=== PATIENT | male | born 1965 | race Caucasian/White ===

== ENCOUNTER 2018-03-03 12:06 | Emergency (ER) | payer BC ==
[~2018-03-03] VITALS: Ht 180.3 cm; Wt 93.4 kg
[2018-03-03 12:46] LABS: HEMATOCRIT 45.8 % (38.0-50.0); HEMOGLOBIN 15.6 G/DL (12.5-16.6); MCH 31.3 PG (29.0-34.0); MCHC 34.1 G/DL (30.0-36.0); MCV 91.8 FL (86-99); PLATELET COUNT 214 K/uL (156-360); RBC DIS.WIDTH-SD 43.9 % (39-53); RED BLOOD COUNT 4.99 M/uL (4.00-5.50)
[2018-03-03 12:56] LABS: CHLORIDE 103 mEq/L (99-109); POTASSIUM 4.6 mEq/L (3.7-5.4); SODIUM 139 mEq/L (136-147)
[2018-03-03 12:57] LABS: GLUCOSE 90 mg/dL (70-99)
[2018-03-03 13:01] LABS: CREATININE 1.2 mg/dL (0.6-1.3); GFR ESTIMATE (CALCULATED) > 59 mL/min/ (58.99-99999)
[2018-03-03 13:02] LABS: UREA NITROGEN (BUN) 17 mg/dL (9-23)
[2018-03-03 13:07] LABS: TROP-I INTERPRETATION NEGATIVE; TROPONIN-I < 0.01 ng/mL (0.0-0.30)
[2018-03-03 14:15] VITALS: BP 127/91
== END 2018-03-03 14:15 | disposition home or self-care (01) ==
LOC: EME 12:06
DX: R07.89 Other chest pain (principal); E03.9 Hypothyroidism, unspecified; I10 Essential (primary) hypertension; E78.5 Hyperlipidemia, unspecified; F17.200 Nicotine dependence, unspecified, uncomplicated
CPT/HCPCS: 71046; 80048; 84484; 85027; 93005; 99281; 99284

== ENCOUNTER 2018-06-17 14:19 | Emergency (ER) | payer BC ==
[~2018-06-17] VITALS: Ht 180.3 cm; Wt 96.0 kg
[2018-06-17 14:48] LABS: HEMATOCRIT 41.4 % (38.0-50.0); HEMOGLOBIN 14.7 G/DL (12.5-16.6); MCH 31.2 PG (29.0-34.0); MCHC 35.5 G/DL (30.0-36.0); MCV 87.9 FL (86-99); PLATELET COUNT 186 K/uL (156-360); RBC DIS.WIDTH-CV 11.9 % (11.8-14.6); RBC DIS.WIDTH-SD 38.5 % (39-53); RED BLOOD COUNT 4.71 M/uL (4.00-5.50); WHITE BLOOD COUNT 11.3 K/uL (4.1-10.2)
[2018-06-17 14:56] LABS: CHLORIDE 105 mEq/L (99-109); SODIUM 137 mEq/L (136-147)
[2018-06-17 14:58] LABS: GLUCOSE 110 mg/dL (70-99); TOTAL PROTEIN 7.1 g/dL (6.4-8.3)
[2018-06-17 15:00] LABS: TOTAL BILIRUBIN 0.4 mg/dL (0.0-1.0)
[2018-06-17 15:01] LABS: ALKALINE PHOSPHATASE 70 IU/L (3-129)
[2018-06-17 15:02] LABS: CREATININE 1.2 mg/dL (0.6-1.3); GFR ESTIMATE (CALCULATED) > 59 mL/min/ (58.99-99999)
[2018-06-17 15:03] LABS: AST (GOT) 21 IU/L (2-34); UREA NITROGEN (BUN) 15 mg/dL (9-23)
[2018-06-17 15:05] LABS: ALT (GPT) 26 IU/L (3-49); LIPASE 22 U/L (1.0-51.0)
[2018-06-17 15:18] LABS: APPEARANCE CLEAR ((CLEAR)); BILIRUBIN NEGATIVE; BLOOD SMALL; COLOR YELLOW ((YELLOW)); GLUCOSE (STRIP) NEGATIVE; KETONES NEGATIVE; LEUKOCYTES NEGATIVE; NITRITE NEGATIVE; PROTEIN (STRIP) 30; SPECIFIC GRAVITY 1.023 (1.000-1.030); UROBILINOGEN 0.2 MG/DL (0.2-1.0)
[2018-06-17 15:24] LABS: BACTERIA RARE /HPF; EPITHELIAL CELLS NONE SEEN /HPF; MUCUS 2+ /LPF; UCUL ADDED? NO; WHITE BLOOD CELLS 0-5 /HPF (0-5)
[2018-06-17] MEDS ORDERED: ZOFRAN ODT4 MG PO (16:37)
[2018-06-17] MEDS ORDERED: BENTYL10 MG PO (16:37)
[2018-06-17 17:10] VITALS: BP 146/96
== END 2018-06-17 17:21 | disposition home or self-care (01) ==
LOC: EME 14:19
PROVIDERS: Physician Assistant
DX: R10.31 Right lower quadrant pain (principal); R11.2 Nausea with vomiting, unspecified; I10 Essential (primary) hypertension; E78.5 Hyperlipidemia, unspecified; F17.200 Nicotine dependence, unspecified, uncomplicated
CPT/HCPCS: 74177; 80053; 81003; 83690; 85027; J1885; J2405; J3010; J7030